=== PATIENT | female | born 1990 | race African-American/Black ===

== ENCOUNTER 2023-08-25 12:02 | Emergency (ER) | payer OTHER ==
[~2023-08-25] VITALS: Ht 160 cm; Wt 98.8 kg
[2023-08-25 13:15] VITALS: BP 149/98; PULSE 81; RESP 18; TEMP 97.6; O2SAT 95
[2023-08-25] MEDS: HYDROcodone-ACET 5/325MG TAB PO ONE (13:19)
[2023-08-25] MEDS ORDERED: BACL10TA PO (14:20)
[2023-08-25] MEDS ORDERED: IBUP-1456 PO (14:20)
[2023-08-25] MEDS: KETOROLAC TROMETH 30 MG/ML 1ML VIAL IM ONE (14:22)
== END 2023-08-25 14:51 | disposition home or self-care (01) ==
LOC: ER 12:02
DX: S76.911A Strain of unspecified muscles, fascia and tendons at thigh level, right thigh, initial encounter (principal); E66.01 Morbid (severe) obesity due to excess calories; Z68.38 Body mass index [BMI] 38.0-38.9, adult; X58.XXXA Exposure to other specified factors, initial encounter; Y93.89 Activity, other specified; Y92.89 Other specified places as the place of occurrence of the external cause; Y99.8 Other external cause status
CPT/HCPCS: 93971; 96372; 99285; J1885